=== PATIENT | male | born 1990 | race Two or more races ===

== ENCOUNTER 2019-09-23 05:34 | Emergency (ER) | payer SELFPAY ==
[2019-09-23] MEDS ORDERED: Bupivacaine 0.5% 10 ML SDV INJECT ONE (06:18)
--- NOTE | 2019-09-23 06:21 | EDM.PDOC ---
ED HPI GENERAL MEDICAL PROBLEM - General Chief Complaint: ENT Problem Stated Complaint: ABCESS TOOTH Time Seen by Provider: 09/23/19 05:42 Source of Information: Reports: Patient History Limitations: Reports: No Limitations - History of Present Illness INITIAL COMMENTS - FREE TEXT/NARRATIVE: 29-year-old male with no past medical history presenting with dental pain. Reports a 1 day history of pain to 1 of the left upper teeth along with subjective facial swelling. Reports pain with hot and cold. Denies shortness of breath, neck stiffness, difficulty swallowing or handling secretions. No history of diabetes or immunosuppression. No self treatment prior to arrival other than ibuprofen. Left Upper Oral/Mouth Pain Score (Numeric/FACES): 7 - Related Data Allergies Allergy/AdvReac Type Severity Reaction Status Date / Time No Known Allergies Allergy Verified 09/23/19 05:58 Home Meds: Home Meds . [No Known Home Meds] 09/23/19 [History] Past Medical History - Past Health History Medical/Surgical History: Denies Medical/Surgical History Social & Family History - Family History Family Medical History: Noncontributory - Tobacco Use Smoking Status *Q: Current Every Day Smoker Years of Tobacco use: 3 Packs/Tins Daily: 0.5 - Caffeine Use Caffeine Use: Reports: Soda - Recreational Drug Use Recreational Drug Use: No ED ROS ENT - Review of Systems Review Of Systems: See Below Constitutional: Denies: Fever, Chills HEENT: Reports: Dental Pain. Denies: Ear Pain, Eye Discharge, Rhinitis, Throat Pain, Throat Swelling Respiratory: Denies: Shortness of Breath GI/Abdominal: Denies: Nausea, Vomiting ED EXAM, ENT - Physical Exam Exam: See Below Text/Narrative:: Vital signs reviewed. Nursing notes reviewed. Constitutional: Awake, alert, non-distressed. Head: Normocephalic, atraumatic. Eyes: EOMI, conjunctiva normal, no discharge, no scleral icterus. Ears, Nose, Throat: External ears and nose normal, moist oral mucosa. Extremely poor dentition with multiple caries and teeth with exposed roots. No evidence of fluctuance or dental abscess. Midline uvula, no swelling to the tongue. Soft floor of the mouth. No pain with tracheal tug. Neck: Supple, full range of motion. Pulmonary: normal work of breathing, no accessory muscle use. Integumentary: Appropriate color for ethnicity, warm, dry, no pallor or jaundice, no rash. Neurologic: Alert, answering questions appropriately, normal speech, no facial droop, moving all extremities well. Psychiatric: Appropriate mood and affect, normal thought process. Course - Vital Signs Text/Narrative:: Patient hemodynamically stable, afebrile, well-appearing, looks nontoxic. Differential diagnosis includes but is not limited to: Dental caries, dental abscess, deep space neck infection, Constantine's angina, sialoadenitis, facial cellulitis, etc. On exam, noted a severely decayed tooth with exposed nerve roots. No evidence of a periapical abscess. Neck is supple, handling secretions well and without difficulty. No evidence of a deep space neck infection. Nontoxic-appearing and afebrile. Perform dental block as detailed in the procedure note. Stable to discharge home with a prescription for Augmentin. Recommended [id number] Tylenol Motrin and needs to follow-up with a dentist. Strict emergency department return precautions were provided, patient indicated understanding. All questions were answered prior to departure. Discharged in good condition. Last Recorded V/S: Last Vital Signs Temp 36.4 C 09/23/19 05:56 Pulse 88 09/23/19 05:56 Resp 20 09/23/19 05:56 BP 119/78 09/23/19 05:56 Pulse Ox 100 09/23/19 05:56 - Orders/Labs/Meds Meds: Medications Discontinued Medications Generic Name Dose Route Start Last Admin Trade Name Freq PRN Reason Stop Dose Admin Bupivacaine HCl 10 ml 09/23/19 06:18 09/23/19 06:26 Sensorcaine-Mpf 0.5% INJECT 09/23/19 06:19 10 ml ONETIME ONE Administration Departure - Departure Time of Disposition: 06:41 Disposition: Home, Self-Care 01 Condition: Good Clinical Impression: Pain, dental - Discharge Information *PRESCRIPTION DRUG MONITORING PROGRAM REVIEWED*: Not Applicable *COPY OF PRESCRIPTION DRUG MONITORING REPORT IN PATIENT BOB: Not Applicable Forms: ED Department Discharge Additional Instructions: Thank you for choosing the [facility] emergency department in [place] for your medical needs today. It was a pleasure caring for you. You were seen in the emergency department for dental pain. The tooth involved likely needs to be extracted by a dentist, which we did not have here in the emergency department. You will be prescribed antibiotic medications. I recommend [id number] extra strength acetaminophen (1000 mg every 6 hours) and ibuprofen (400 mg every 6 hours) to help treat your pain. Warning signs to return to the ER include facial swelling, fever, severe pain, or difficulty swallowing or moving her neck. Please return the emergency department immediately if your symptoms worsen or if you feel worse. The following information is given to patients seen in the emergency department who are being discharged. This information is to outline your options for follow-up care. We provide all patients seen in our emergency department with a follow-up referral. The need for follow-up, as well as the timing and circumstances, are variable depending upon the specifics of your emergency department visit. If you don't have a primary care physician on staff, we will provide you with a referral. We always advise you to contact your personal physician following an emergency department visit to inform them of the circumstance of the visit and for follow-up with them and/or the need for any referrals to a consulting specialist. The emergency department will also refer you to a specialist when appropriate. This referral assures that you have the opportunity for follow-up care with a specialist. All of these measure are taken in an effort to provide you with optimal care, which includes your follow-up. Under all circumstances we always encourage you to contact your private physician who remains a resource for coordinating your care. When calling for follow-up care, please make the office aware that this follow-up is from your recent emergency room visit. If for any reason you are refused follow-up, please contact the [facility] Emergency Department at and asked to speak to the emergency department charge nurse. If you do not have a primary care physician that is caring for you, you can contact these clinics below to set up an appointment to establish care: [facility] - [facility] [address] [place] [id number] [facility] [address] [place] [id number] Sepsis Event Note (ED) - Evaluation Sepsis Screening Result: No Definite Risk - Focused Exam Vital Signs: Vital Signs Temp Pulse Resp BP Pulse Ox 09/23/19 05:56 36.4 C 88 20 119/78 100 ED PROCEDURES - Additional/Other Procedure(s) Other (Free Text) Procedure(s): Procedure: Dental block Indication: Dental pain Anesthesia: Bupivacaine 0.5% Technique: Supraperiosteal Needle was introduced on the buccal and palatal side of the tooth, aspirated, no blood return noted. Anesthetic was injected with good relief of pain. No complications apparent.
== END 2019-09-23 06:54 | disposition home or self-care (01) ==
LOC: MW.ED 05:34
DX: K02.9 Dental caries, unspecified (principal); K00.7 Teething syndrome; F17.210 Nicotine dependence, cigarettes, uncomplicated
CPT/HCPCS: 64400; 99282; J3490

== ENCOUNTER 2022-06-03 16:57 | Emergency (ER) | payer BC ==
[2022-06-03] MEDS ORDERED: Sodium Chloride 0.9% 1,000 ML IV ONE (16:58)
[2022-06-03] MEDS ORDERED: Nicotine 14 MG/24 Hr Patch TRDERM ONE (17:33)
[2022-06-03 17:58] LABS: BLOOD UREA NITROGEN,BUN 20 mg/dL (7.0-18.0); CARBON DIOXIDE,CO2 27.6 mmol/L (21.0-32.0); CHLORIDE,CL 101 mmol/L (98-107); GLUCOSE RANDOM 161 mg/dL (74-106); POTASSIUM,K 4.5 mmol/L (3.5-5.1); SODIUM,NA 138 mmol/L (136-148)
[2022-06-03 18:04] LABS: ESTIMATED GFR 92 mL/min (>60)
[2022-06-03 18:39] LABS: CORONAVIRUS COVID-19 NAA NEGATIVE (NEGATIVE); INFLUENZA A NAA NEGATIVE (NEGATIVE); INFLUENZA B NAA NEGATIVE (NEGATIVE)
== END 2022-06-03 19:21 | disposition home or self-care (01) ==
LOC: MW.ED 16:57
DX: T40.411A Poisoning by fentanyl or fentanyl analogs, accidental (unintentional), initial encounter (principal); Z20.822 Contact with and (suspected) exposure to COVID-19
CPT/HCPCS: 0240U; 36415; 70450; 71045; 80053; 80305; 80307; 81003; 85025; 96360; 99285; A9270; J7030; 93010; 99283